=== PATIENT | female | born 1960 | race Caucasian/White ===

== ENCOUNTER → 2023-07-01 | Outpatient (CLI) | payer BC, SELFPAY ==
--- OUTSIDE RECORDS SUMMARY | 2023-07-01 19:24 | XMS RPT_ITS | CCD ---
Author Name Unknown Address [address] [place] [address] Organization [facility] Care Team Providers Care Crop Research Scientist Name Role Phone NubiaChin Primary Care Provider CHIN GOMES Attending Unavailable CHIN GOMES Referring Unavailable CHIN GOMES Primary Care Unavailable Chin Gomes Primary Care Provider Dianne Dunaway MD Primary Care Provider DIANNE DUNAWAY MD Primary Care Unavailable DIANNE DUNAWAY MD Consulting Unavailable DIANNE DUNAWAY MD Attending Unavailable DIANNE DUNAWAY MD Admitting Unavailable PROVIDER, UNKNOWN Consulting Unavailable PROVIDER, UNKNOWN Consulting Unavailable PROVIDER, UNKNOWN Consulting Unavailable DIANNE DUNAWAY MD Primary Care Unavailable DIANNE DUNAWAY MD Consulting Unavailable DIANNE DUNAWAY MD Attending Unavailable DIANNE DUNAWAY MD Admitting Unavailable PROVIDER, UNKNOWN Consulting Unavailable PROVIDER, UNKNOWN Consulting Unavailable PROVIDER, UNKNOWN Consulting Unavailable DIANNE DUNAWAY MD Primary Care Unavailable DIANNE DUNAWAY MD Attending Unavailable DIANNE DUNAWAY MD Consulting Unavailable DIANNE DUNAWAY MD Admitting Unavailable PROVIDER, UNKNOWN Consulting Unavailable PROVIDER, UNKNOWN Consulting Unavailable PROVIDER, UNKNOWN Consulting Unavailable DIANNE DUNAWAY MD Consulting Unavailable RADHA MORGAN Attending Unavailable DIANNE DUNAWAY MD Referring Unavailable RADHA MORGAN Admitting Unavailable RADHA MORGAN Primary Care Unavailable PROVIDER, UNKNOWN Consulting Unavailable PROVIDER, UNKNOWN Consulting Unavailable PROVIDER, UNKNOWN Consulting Unavailable DIANNE DUNAWAY MD Primary Care Unavailable DIANNE DUNAWAY MD Consulting Unavailable DIANNE DUNAWAY MD Attending Unavailable DIANNE DUNAWAY MD Admitting Unavailable PROVIDER, UNKNOWN Consulting Unavailable PROVIDER, UNKNOWN Consulting Unavailable PROVIDER, UNKNOWN Consulting Unavailable DIANNE DUNAWAY MD Consulting Unavailable DIANNE DUNAWAY MD Attending Unavailable GUME, DIANNE GAMEZ Admitting Unavailable DIANNE DUNAWAY MD Primary Care Unavailable PROVIDER, UNKNOWN Consulting Unavailable PROVIDER, UNKNOWN Consulting Unavailable PROVIDER, UNKNOWN Consulting Unavailable LATDIANNE MARCIAL MD Primary Care Unavailable LATOUCrystal, DIANNE GAMEZ Consulting Unavailable GUME, DIANNE GAMEZ Attending Unavailable GUME, DIANNE GAMEZ Admitting Unavailable PROVIDER, UNKNOWN Consulting Unavailable PROVIDER, UNKNOWN Consulting Unavailable PROVIDER, UNKNOWN Consulting Unavailable Allergies Allergy Classification Reported Allergen(s) Allergy Type Date of Onset Reaction(s) Facility (1 source) Adhesive Tape Propensity to adverse reactions [facility] Work Phone: (1 source) Codeine Drug Allergy GI Upset [facility] (1 source) Ethylenediamine Drug Allergy Unknown [facility] (1 source) METHYLDIBROMO GLUTARONITRILE Drug Allergy Unknown [facility] (1 source) nickel Drug Allergy Hives [facility] (1 source) Wheat preparation Drug Allergy Diarrhea [facility] (1 source) Bees Propensity to adverse reactions 009 [facility] (1 source) Bisphosphonates Drug Intolerance Unknown [facility] (1 source) Diethylene Glycol Drug Intolerance Unknown [facility] (1 source) DYES [Other] Propensity to adverse reactions [facility] Work Phone: (1 source) Ethylmethoxy Salicylate Drug Intolerance 016 Unknown [facility] (1 source) Hydroxyethyl Methacrylate Drug Intolerance 016 Unknown [facility] (1 source) Internal Gutt Suture [Other] Propensity to adverse reactions 010 Other: See Comments [facility] Work Phone: (1 source) Phenylenediamine (Ppd) (M-,O-,P-) Propensity to adverse reactions to substance 016 Unknown [facility] (1 source) Triethylenemelamine Drug Intolerance 016 Unknown [facility] (1 source) Codeine Drug Allergy [facility] Rep[facility] (1 source) Sulfonamides (Antibiotic) Drug allergy (disorder) [facility] Medications Current Medications Medication Drug Class(es) Dates Sig (Normalized) Sig (Original) prednisoLONE acetate 10 mg/ml ophthalmic suspension (1 source) Corticosteroid Start: 09-23-2021 End: 10-23-2021 prednisoLONE acetate (PRED FORTE, ECONOPRED PLUS) 1 % ophthalmic suspension Use 1 Drop in the left eye twice daily. 5 mL 0 09/23/2021 10/23/2021 Active Completed/Discontinued Medications Medication Drug Class(es) Dates Sig (Normalized) Sig (Original) [id number] 200 actuat albuterol 0.09 mg/actuat metered dose inhaler (1 source) beta2-Adrenergic Agonist Start: 08-29-2014 take 2 puff(s) by inhalation every six hours albuterol HFA (PROVENTIL HFA, VENTOLIN HFA) 90 mcg/actuation inhaler Inhale 2 Puffs as instructed every 6 hours. 1 Inhaler 0 08/29/2014 Active Problems Active Problems Problem Classification Problem Date Documented Date Episodic/Chronic Disorders of lipid metabolism (2 sources) Hyperlipidemia; Translations: [Hyperlipidemia, unspecified] Onset: 06-22-2015 08-02-2021 Chronic Essential hypertension (1 source) Essential hypertension; Translations: [Essential (primary) hypertension] Onset: 04-07-2017 04-07-2017 Chronic Miscellaneous mental health disorders (1 source) Lack or loss of sexual desire; Translations: [Hypoactive sexual desire disorder] Onset: 04-26-2010 04-26-2010 Chronic Other aftercare (1 source) Surgical follow-up; Translations: [Encounter for follow-up examination after completed treatment for conditions other than malignant neoplasm] Episodic Other bone disease and musculoskeletal deformities (2 sources) Other specified disorders of bone density and structure, unspecified site; Translations: [Other specified disorders of bone density and structure, unspecified site] Onset: 04-17-2023 Episodic Other eye disorders (1 source) Pyogranulomatous conjunctivitis; 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, left eye] Episodic Other hereditary and degenerative nervous system conditions (1 source) Restless legs; Translations: [Restless legs syndrome] Onset: 04-06-2017 04-06-2017 Chronic Other nutritional; endocrine; and metabolic disorders (1 source) Body mass index 30+ - obesity; Translations: [Body mass index (BMI) 35.0-35.9, adult] Onset: 11-26-2015 04-07-2017 Chronic Other screening for suspected conditions (not mental disorders or infectious disease) (1 source) Breast neoplasm screening status; Translations: [Visit for screening mammogram] Episodic Other skin disorders (2 sources) Other skin changes; Translations: [Other skin changes] Onset: 06-03-2022 Episodic Residual codes; unclassified (1 source) Obstructive sleep apnea syndrome; Translations: [Obstructive sleep apnea (adult) (pediatric)] Onset: 06-22-2015 06-22-2015 Chronic Viral infection (1 source) Genital herpes simplex; Translations: [Herpesviral infection of urogenital system, unspecified] Onset: 02-18-2010 02-18-2010 Chronic Past or Other Problems Problem Classification Problem Date Documented Da te Episodic/Chronic Genitourinary symptoms and ill-defined conditions (2 sources) Dysuria; Translations: [Frequency of micturition] Onset: 11-21-2022 Episodic Other connective tissue disease (1 source) Adhesive capsulitis of shoulder; Translations: [Adhesive capsulitis of left shoulder] Onset: 06-22-2015 06-22-2015 Episodic Residual codes; unclassified (1 source) Menopause present; Translations: [Asymptomatic menopausal state] Onset: 11-26-2015 11-26-2015 Episodic Urinary tract infections (3 sources) Urinary tract infection, site not specified; Translations: [Urinary tract infection, site not specified] Onset: 06-03-2022 Episodic Results Test Name Value Interpretation Reference Range Facil ity Encounters Encounter Date Encounter Type Care Provider Facility Start: 06-01-[address] [facility] Start: 04-17-2023 End: 04-17[facility]23 [facility] Start: 11-21-2022 End: 11-21-2022 [facility] Start: 08-17-2022 End: 08-17-2022 Emergency department [facility] Start: 06-23-2022 End: 06-23-2022 ambulatory DIANNE GAMEZ [facility] Start: 06-17-2022 End: 06-17-2022 ambulatory DIANNE GAMEZ [facility] Start: 06-03-2022 End: 06-03-2022 [facility] Start: 09-23-2021 End: 09-23-2021 Patient encounter procedure Ghulam Terrazas MD Work Phone: Ophthalmology Procedures Date Procedure Procedure Detail Performing Clinician Start: 08-19-2018 Mammography Machelle P serena Start: 04-06-2017 Adult depression scr eening assessment Ghulam Terrazas MD Work Phone: Start: 10-16-2016 Mammography Chin Nubia Plan of Treatment Date Care Activity Detail Author Start: 08-01-2022 BP CONTROLLED (<130/80) BP CONTROLLE D (<130/80) [facility] Start: 09-04-2021 COVID-19 VACCINE (4 - Booster for Pfizer series) COVID-19 VACCINE (4 - Booster for Pfizer series) [facility] Start: 02-26-2021 Tetanus vaccination [facility] Start: 02-26-2021 Urine microalbumin profile DTA P,TDAP,TD (2 - Td or Tdap) [facility] Start: 11-25-2020 LIPID SCREEN LIPID SCREEN [facility] Start: 01-17-2020 Influenza vaccinatio n given Sequential Influenza Vaccine (#1) [facility] Start: 08-20-2019 Screening mammography [facility]ammogram [facility] Start: 11-25-2018 DIABETES SCREEN DIABETES SCREEN [facility] Start: 06-08-2018 ANNUAL PCP TEAM MEDICAL ASSISTANT PER DIEM ARTEMIO DISEASE VISIT ANNUAL PCP TEAM CHRONIC DISEASE VISIT [facility] Start: 04-06-2018 Adult depression scr eening assessment DEPRESSION SCREENING [facility] Start: 01-16-2018 Influenza vaccinatio n given SEQUENTIAL INFLUENZA VACCINE (#1) [facility] Start: 10-16-2017 Mammography MAMMOGRAM [facility] Start: 10-16-2017 Protein mass conc Mammogram [facility] Start: 2009 Administration of he rpes zoster vaccine Zoster Vaccines (1 of 2) [facility] Start: 2009 Influenza vaccination LUNG CANCER SC REENING [facility] Start: 2009 Screening for malign ant neoplasm of colon [facility] Start: 2009 SHINGRIX VACCINE (1 of 2) SHINGRIX V ACCINE (1 of 2) [facility] Start: 02-22-2004 COLOGUARD (FIT-DNA) COLOGUARD (FIT-D NA) [facility] Start: 02-22-2004 Colonoscopy COLONOSCOPY [facility] Start: 02-22-2004 COLORECTAL CANCER SCREENING COLORECTAL CANCER SCREENING [facility] Start: 02-22-[address] COLONOGRAPHY [facility] Start: 02-22-2004 FECAL OCCULT BLOOD FECAL OCCULT BLOO D [facility] Start: 02-22-2004 SIGMOIDOSCOPY SIGMOIDOSCOPY [facility] Start: 1977 Hepatitis C antibody , confirmatory test Hepatitis C Screening [facility] Start: 1977 HIV SCREENING HIV SCREENING [facility] Start: 1975 COVID-19 Vaccine (1 of 2) COVID-19 V accine (1 of 2) [facility] Start: 1974 HIV screening HIV Screening [facility] Start: 1971 Adolescent depressio n screening assessment Depression Screening (PHQ9) [facility] Start: 1962 History and physical examination, annual for health maintenance Wellness Visit [facility] Start: 1959 Hepatitis C antibody , confirmatory test HEPATITIS C SCREENING [facility] Start: 1959 Screening for malign ant neoplasm of cervix PAP SMEAR [facility] Start: 1959 Screening for malign ant neoplasm of colon Colorectal Cancer Screening: Colonoscopy [facility] End: 08-19-2018 MG Breast - bilateral screening Mammography Screening Bilateral Routine Visit for screening mammogram Once for 1 Occurrences starting 08/19/2018 until 08/19/2018 [facility] Immunizations Immunization Date Immunization Notes Care Provider Aayush middleton 04-06-2017 influenza, injectabl e, quadrivalent, contains preservative Ghulam Terrazas MD Work Phone: [facility] 03-31-2016 influenza, injectabl e, quadrivalent, contains preservative Ghulam Terrazas MD Work Phone: [facility] 02-26-2011 influenza virus vacc ine, unspecified formulation Ghulam Terrazas MD Work Phone: [facility] 02-26-2011 pneumococcal polysaccharide vaccine, 23 valent Ghulam Terrazas MD Work Phone: [facility] 02-26-2011 tetanus toxoid, redu sabra diphtheria toxoid, and acellular pertussis vaccine, adsorbed Ghulam Terrazas MD Work Phone: [facility] Payers Date Payer Category Payer Unknown [id number] 2017 Unknown [id number] 2013 Unknown [employer]PER[employer] PPO xxxxxxxx 2013-Present [id number] 1959 Unknown [id number] 1959 Unknown [id number] 1959 Unknown [id number] 1959 Unknown [id number] 1959 Unknown [id number] 1959 Unknown [id number] 1959 Unknown [id number] 1959 Unknown [id number] Social History Date Type Detail Facility Start: 08-19-2018 Tobacco smoking stat [facility] Unknown if ever smoked [facility] Sex Assigned At Not on file [facility] End: 08-08-2007 History of tobacco use Current smoker [facility] End: 08-08-2007 History of tobacco use Cigarette Smoker [facility] Start: 09-23-2021 Alcohol intake Current non-dr linker up of alcohol (finding) [facility] Start: 1960 Sex Assigned At Female C [facility] Start: 09-13-2021 End: 09-23-2021 Exposure to SARS-CoV-2 (event) Not sure [facility] History of Present illness Narrative 09-23-2021 Ghulam Terrazas MD - 09/23/2021 1:17 PM EDT Note Date & Type Note Facility 09-23-2021 History of Presen t illness Narrative s/p lll rotational flap heliang well no notch, no trichiasis still absorbing sutures central lll PG laterally at lateral canthus some d/c irritation from pg no lag timoptic 2 PF 2 rtc 6 weeks if no better can consider excision I have confirmed and edited as necessary the relevant ophthalmic history, ROS, and the neuro exam findings as obtained by others. I have seen and examined this patient. I have discussed the case and the management of this patient's care with the Resident/Fellow, if applicable. I also have reviewed and agree with the assessment and plan as stated above and agree with all of its relevant components. Ghulam Terrazas MD September 23, 2021 3:07 PM documented in this encounter [facility] History of Past illness Narrative 07-13-2015 Note Date & Type Note Facility documented as of this encounter (statuses as of 09/23/2021) [facility] Evaluation note Note Date & Type Note Facility documented in this encounter [facility] Assessments Diagnosis Visit for screening mammogram Advance Directives No Advanced Directives Records FoundDocuments on File Type Date Recorded Patient Labor Specialist Expl anation Advance Directives and Livin g Will 08/19/2018 10:52 AM Documents on File Type Date Recorded Patient Labor Specialist Expl anation Advance Directive(s) 07/04/2021 3:55 PM Advance Directive(s) 07/14/2008 8:33 AM Summary Purpose Family History No Family History Records FoundNo Family History Records FoundNo Family History Records FoundNo Family History Records Found Additional Source Comments Reason for Visit (unrecogniz ed section and content) Reason Comments Post-op (Ophthalmology) Left Eye s/p LLL rotational flap after moh's by Dr Terrazas 08/02/21 INFORMATION SOURCE (unrecogn ized section and content) DATE CREATED AUTHOR AUTHOR'S ORGANIZ ATION 12/22/2020 [facility] DATE CREATED AUTHOR AUTHOR'S ORGANIZ ATION 11/24/2022 [facility] DATE CREATED AUTHOR AUTHOR'S ORGANIZ ATION 06/01/2023 [facility] Source Comments (unrecognize d section and content) In the event this informatio n is protected by the Federal Confidentiality of Alcohol and Drug Abuse Patient Records regulations: The Federal rules restrict any use of the information to criminally investigate or prosecute any alcohol or drug abuse patient.[facility] Care Teams (unrecognized sec tion and content) FOR RECORDS PERTAINING TO PATIENTS WHO ARE OR HAVE BEEN ENROLLED IN A CHEMICAL DEPENDENCY/SUBSTANCEABUSE PROGRAM, SOME INFORMATION MAY BE OMITTED. This clinical summary was aggregated from multiple sources. Caution should be exercised in using it in the provision of clinical care. This summary normalizes information from multiple sources, and as a consequence, information in this document may materially change the coding, format and clinical context of patient data. In addition, data may be omitted in some cases. CLINICAL DECISIONS SHOULD BE BASED ON THE PRIMARY CLINICAL RECORDS. [facility] [employer] [facility]. provides no warranty or guarantee of the accuracy or completeness of information in this document.
== END | disposition home or self-care (01) ==
PROVIDERS: PCP Internal Medicine; Visit Provider Otolaryngology Otolaryngology/Facial Plastic Surgery
DX: J32.8 Other chronic sinusitis (principal)
CPT/HCPCS: 87070; 87205